=== PATIENT | female | born 1935 | race Caucasian/White ===

== ENCOUNTER 2018-12-17 18:28 | Observation (INO) | payer MEDICARE, MEDICAID ==
--- NOTE | 2018-12-17 18:42 | ED ---
Abdominal Pain/Female - HPI Summary HPI Summary: An 83 y/o female brought in by [facility] presents to [facility] with a chief complaint of RLQ pain since 21:00 yesterday. The patient had a CT done and there was concern for appendicitis. At triage the patient rated her pain as a 6/10 in severity. The patient is refusing pain medications. - History of Current Complaint Stated Complaint: APPENDICITIS PER EMS Time Seen by Provider: 12/17/18 18:34 Hx Obtained From: Patient Onset/Duration: Lasting Hours, Still Present Timing: Constant Severity Initially: Moderate Severity Currently: Moderate Pain Intensity: 6 Pain Scale Used: 0-10 Numeric Location: Discrete At: RLQ Radiates: No Character: Other: - unable to Aggravating Factor(s): Nothing Alleviating Factor(s): Nothing Associated Signs and Symptoms: Negative: Fever Allergies/Adverse Reactions: Allergies Allergy/AdvReac Type Severity Reaction Status Date / Time sulfamethoxazole Allergy Anaphylatic Verified 12/17/18 18:39 [From Bactrim] Shock trimethoprim [From Bactrim] Allergy Anaphylatic Verified 12/17/18 18:39 Shock TOPICAL VIT E Allergy Itching Uncoded 12/17/18 18:39 Home Medications: Home Medications Ascorbic Acid [Vitamin C] 1,000 mg PO DAILY 12/17/18 [History Confirmed 12/17/18 ] Candesartan Cilexetil 4 mg PO DAILY 12/17/18 [History Confirmed 12/17/18] Cholecalciferol TAB* [Vitamin D TAB*] 2,000 units PO DAILY 12/17/18 [History Confirmed 12/17/18] Fluticasone HFA 110 mcg(NF) [Flovent HFA 110 mcg(NF)] 1 puff INH BID 12/17/18 [ History Confirmed 12/17/18] Multivitamin [Multiple Vitamins] 1 tab PO DAILY 12/17/18 [History Confirmed 06/06] Pravastatin Sodium 20 mg PO DAILY 12/17/18 [History Confirmed 12/17/18] Sertraline HCl [Zoloft] 100 mg PO DAILY 12/17/18 [History Confirmed 12/17/18] PMH/Surg Hx/FS Hx/Imm Hx Cardiovascular History: Reports: Hx Hypercholesterolemia, Hx Hypertension Psychiatric History: Reports: Hx Depression - Family History Known Family History: Negative: Blood Disorder - Social History Alcohol Use: Weekly Hx Substance Use: No Smoking Status (MU): Never Smoked Tobacco Review of Systems Negative: Fever Positive: Abdominal Pain All Other Systems Reviewed And Are Negative: Yes Physical Exam - Summary Physical Exam Summary: Appearance: The patient is well-nourished in no acute distress and in no acute pain. Skin: The skin is warm and dry and skin color reflects adequate perfusion. HEENT: The head is normocephalic and atraumatic. The pupils are equal and reactive. The conjunctivae are clear and without drainage. Nares are patent and without drainage. Mouth reveals moist mucous membranes and the throat is without erythema and exudate. The external ears are intact. The ear canals are patent and without drainage. The tympanic membranes are intact. Neck: The neck is supple with full range of motion and non-tender. There are no carotid bruits. There is no neck vein distension. Respiratory: Chest is non-tender. Lungs are clear to auscultation and breath sounds are symmetrical and equal. Cardiovascular: Heart is regular rate and rhythm. There is no murmur or rub auscultated. There is no peripheral edema and pulses are symmetrical and equal. Abdomen: The abdomen is tender in her right lower quadrant. There are normal bowel sounds heard in all four quadrants and there is no organomegaly palpated. Musculoskeletal: There is no back tenderness noted. Extremities are non-tender with full range of motion. There is good capillary refill. There is no peripheral edema or calf tenderness elicited. Neurological: Patient is alert and oriented to person, place and time. The patient has symmetrical motor strength in all four extremities. Cranial nerves are grossly intact. Deep tendon reflexes are symmetrical and equal in all four extremities. Psychiatric: The patient has an appropriate affect and does not exhibit any anxiety or depression. Triage Information Reviewed: Yes Vital Signs Reviewed: Yes Abdominal Pain Fem Course/Dx - Course Course Of Treatment: Ms. Price was diagnosed with appendicitis at [facility] and transferred here for surgery. She was nontoxic in appearance with stable vital signs and was refusing pain medication. I spoke with Dr. Toledo who evaluated her in the emergency department and will take her to the OR. - Diagnoses Provider Diagnoses: Appendicitis - Provider Notifications Discussed Care Of Patient With: Zoë Toledo Time Discussed With Above Provider: 18:56 Instructed by Provider To: Admit As Inpatient Discharge - Sign-Out/Discharge Documenting (check all that apply): Patient Departure All imaging exams completed and their final reports reviewed: No Studies Patient Received Moderate/Deep Sedation with Procedure: No - Discharge Plan Condition: Stable Disposition: ADMITTED TO [facility] - Billing Disposition and Condition Condition: STABLE Disposition: Admitted to [facility] - Attestation Statements Document Initiated by Zekee: Yes Documenting Scribe: Edgar Anderson Provider For Whom Lia is Documenting (Include Credential): Raoul Hernandes MD Scribe Attestation: IEdgar, scribed for Raoul Hernandes MD on 12/17/18 at 2206. Scribe Documentation Reviewed: Yes Provider Attestation: The documentation as recorded by the Edgar mancia accurately reflects the service I personally performed and the decisions made by me, Raoul Hernandes MD Status of Scribe Document: Viewed
[2018-12-17] MEDS ORDERED: Bupivacaine 0.25% SDV PF* 10 ML VIAL INJ ONE (19:28)
[2018-12-17] MEDS ORDERED: Dexamethasone IV* 4 MG/ML 1 ML (4 MG) ONE ×2 (19:33→20:41)
[2018-12-17] MEDS ORDERED: Propofol* 10 MG/ML 20 ML BTL ONE ×2 (19:33→20:41)
[2018-12-17] MEDS ORDERED: Lidocaine 2% PF * 5 ML VIAL ONE ×2 (19:33→20:37)
[2018-12-17] MEDS ORDERED: Ondansetron INJ* 2 MG/ML VIAL ONE ×2 (19:33→20:41)
[2018-12-17] MEDS ORDERED: fentaNYL* 50 MCG/ML 2 ML VIAL (100 MCG VIAL) ONE ×3 (19:34→21:17)
[2018-12-17] MEDS ORDERED: Cisatracurium* 2 MG/ML MDV 5 ML ONE ×2 (19:34→20:41)
[2018-12-17] MEDS ORDERED: Midazolam* 1 MG/ML 5 ML VIAL (5 MG) ONE (19:34)
[2018-12-17] MEDS ORDERED: ceFAZolin 2 GM in NS PREMIX(*) 2 GM/100 ML BAG IVPB ONE (19:48)
[2018-12-17] MEDS ORDERED: Midazolam* 1 MG/ML 2 ML VIAL (2 MG) ONE (20:26)
[2018-12-17] MEDS ORDERED: Famotidine IV* 10 MG/ML 2 ML (20 mg) ONE (20:28)
--- NOTE | 2018-12-17 20:35 | HP ---
HISTORY AND PHYSICAL: DATE OF ADMISSION: 12/17/18 SERVICE: General Surgery. ATTENDING SURGEON: Dr. Zoë Toledo. REASON FOR ADMISSION: Right lower quadrant abdominal pain and acute appendicitis. HISTORY OF PRESENT ILLNESS: Ms. Price is a very pleasant 83-year-old female with a history of hypertension, hyperlipidemia and skin cancer, who presented to the [facility] with complaints of less than 1 day of right lower quadrant abdominal pain. She says that the pain began yesterday evening at approximately 9 p.m. The pain became progressively worse, so she came to the emergency room for evaluation. Per the patient and her medical records, she was evaluated and had a urinalysis showing some nitrites and trace leukocyte esterase, so she was given ceftriaxone for presumed UTI; however, a CT abdomen and pelvis was performed, which showed an acute appendicitis and a dilated appendix. She was therefore transferred to [facility] Emergency Room for a surgical consultation. Currently, the patient says that her only complaint is mild pain. She does not have any significant nausea or vomiting; however, she did vomit once in the emergency room and she last ate at approximately 10:30 this morning. PAST MEDICAL HISTORY: Hypertension, hyperlipidemia, and asthma. PAST SURGICAL HISTORY: Removal of skin cancers on her face, left orbital surgery. MEDICATIONS: 1. Candesartan 4 mg p.o. daily. 2. Sertraline 100 mg p.o. daily. 3. Pravastatin 20 mg p.o. daily. 4. Omeprazole 20 mg p.o. daily. 5. Ranitidine 150 mg p.o. q.h.s. 6. Albuterol as needed. 7. Fluticasone as needed. 8. [place]-3 fatty acids 1 cap p.o. daily. 9. Multivitamins. 10. Calcium 1600 mg p.o. daily. ALLERGIES: BACTRIM and VITAMIN E. FAMILY HISTORY: No significant family history. SOCIAL HISTORY: The patient is a nonsmoker. She lives in an assisted living facility. She is independent of her daily activities. She has family that lives close by and whom she sees often. REVIEW OF SYSTEMS: Negative except for abdominal pain and emesis. PHYSICAL EXAMINATION GENERAL: This is an elderly woman, appears younger than her stated age, who is lying comfortably in the stretcher, in no apparent distress. VITAL SIGNS: Temperature is 99.4, pulse is 95, respiratory rate is 20, O2 sat is 99% on room air, blood pressure is 155/77. HEENT: Normocephalic, atraumatic. There is some slight proptosis of her eye. RESPIRATORY: Clear to auscultation bilaterally. CARDIOVASCULAR: Regular rate and rhythm. ABDOMEN: Soft, nondistended. Focal tenderness in the right lower quadrant. EXTREMITIES: No edema. DIAGNOSTIC STUDIES/LAB DATA: Her labs from her [facility] report sodium is 139, potassium is 3.8, chloride is 102, CO2 is 26, BUN is 11, creatinine is 0.8, glucose is 107. Total bilirubin is 0.8, calcium is 9.1, AST is 19, ALT is 17, alkaline phosphatase is 61. White blood cell count is 12.2, hemoglobin is 12.6, hematocrit is 38.9, and platelets are 187. Urinalysis shows positive nitrites and trace leukocyte esterase. Radiology: CT abdomen and pelvis - images reviewed. Report notes that a dilated appendix that is obstructed by a fecalith, acute appendicitis without rupture. There is liver lesion that is almost definitely a benign cyst, unless there is a known history of extrahepatic malignancy that can spread to the liver. The patient also has extensive diverticulosis without diverticulitis. ASSESSMENT AND PLAN: Ms. Price is a very pleasant 83-year-old female with a history of hypertension, hyperlipidemia and asthma, who presents to the emergency room with complaints of less than 1 day of right lower quadrant abdominal pain. She was found to have a slightly elevated white blood cell count of 12 and findings consistent with acute appendicitis on CT scan. She was therefore transferred from the [facility] to [facility] for a surgical consultation. I discussed with her and her daughter that the options for management of acute appendicitis are operative intervention with a laparoscopic appendectomy or antibiotics alone. I discussed the risks, benefits, and alternatives of surgery and they wish to proceed with surgery. I discussed that the risks include, but are not limited to bleeding, infection including intraabdominal infection such as an abscess, and possibility of injury to nearby structures such as the intestines, colon, bladder, and so forth. There are also risks of perioperative morbidity. The patient understands all these things and she wishes to proceed with surgery. She has been n.p.o. We will give her antibiotics prior to surgery. She should continue IV fluids and she may be admitted overnight for observation. [id number]/[facility] #: [id number] JULI
[2018-12-17] MEDS ORDERED: Succinylcholine* 20 MG/ML 10 ML VIAL ONE (20:43)
[2018-12-17] MEDS ORDERED: Naloxone* 0.4 MG/ML 1 ML VIAL IV PRN ×2 (21:12→21:13)
[2018-12-17] MEDS ORDERED: PROCHLORPERAZINE INJ 5 MG/ML 2 ML VIAL IV PRN (21:13)
[2018-12-17] MEDS ORDERED: Ondansetron INJ* 2 MG/ML VIAL IV PRN ×2 (21:13→22:12)
[2018-12-17] MEDS ORDERED: oxyCODONE TAB* 5 MG TAB PO PRN (21:13)
[2018-12-17] MEDS ORDERED: fentaNYL* 50 MCG/ML 2 ML VIAL (100 MCG VIAL) IV PRN (21:13)
[2018-12-17] MEDS ORDERED: DiMENhydriNATE IV* 50 MG/ML VIAL IV PUSH PRN (21:13)
[2018-12-17] MEDS ORDERED: Levalbuterol 0.63MG/3ML NEB* UNIT OF USE INH PRN (21:13)
[2018-12-17] MEDS ORDERED: diPHENhydraMINE IV* 50 MG/ML 1 ml VIAL (BENADRYL) IV PRN (21:13)
[2018-12-17] MEDS ORDERED: Acetaminophen IV 1GM/100ML * 100 ML ONE (21:36)
[2018-12-17] MEDS ORDERED: Labetalol IV* 5 MG/ML 20 ML VIAL ONE (21:41)
[2018-12-17] MEDS ORDERED: HYDROmorphone INJ1* 1 MG/ML SYRINGE IV SLOW PU PRN (22:12)
[2018-12-17] MEDS ORDERED: oxyCODONE/Acetamin 5/325 MG* TAB PO PRN (22:12)
[2018-12-17] MEDS ORDERED: NS 0.9% 1000 ML** 1,000 ML IV SCH (22:15)
--- NOTE | 2018-12-17 22:20 | OP ---
Operative Report - Detailed - Operation Details Date of Operation: 12/17/18 Surgeon(s): Zoë Toledo Court Officer(s): None Anesthesiologist(s): Dr. King Anesthesia: GETA Pre-Op Diagnosis: acute appendicitis Post-Op Diagnosis: acute perforated appendicitis Planned Operative Procedure(s): laparoscopic appendectomy Estimated Blood Loss: minimal, less than 10cc Specimen(s)/Culture(s) Description: appendix Drains: None Wound Classification: Contaminated Complications: None Findings: Retrocecal appendix, dilated and hyperemic. Perforated at the tip with local spillage
--- NOTE | 2018-12-17 23:14 | OP ---
DATE OF OPERATION: 12/17/18 - ROOM #338 DATE OF : 33 SERVICE: General Surgery. SURGEON: Zoë Toledo MD ELECTRONIC SECURITY TECHNICIAN: None. ANESTHESIOLOGIST: Maria Alejandra King MD ANESTHESIA: General endotracheal anesthesia. PRE-OP DIAGNOSIS: Acute appendicitis. POST-OP DIAGNOSIS: Perforated acute appendicitis. OPERATIVE PROCEDURE: Laparoscopic appendectomy. SPECIMEN: Appendix. ESTIMATED BLOOD LOSS: Minimal, less than 10 cc. INDICATIONS FOR SURGERY: Ms. Price is a very pleasant 83-year-old female who presented to the emergency room with complaints of one day of right lower quadrant abdominal pain. She was found to have white blood cell count of [address] scan concerning for acute appendicitis. Therefore, she gave informed consent for laparoscopic appendectomy. She understood the risks, benefits, and alternatives of the procedure and wished to proceed. INTRAOPERATIVE FINDINGS: Dilated hyperemic and perforated appendix that was locally perforated at the tip DESCRIPTION OF PROCEDURE: The patient was brought back to the operating room and placed on the operating table in the supine position. Sequential compression devices were placed in the bilateral lower extremities for DVT prophylaxis. Antibiotics with Ancef was administered prior to incision. General endotracheal anesthesia was induced. The patient's abdomen was prepped and draped in normal sterile fashion. Prior to beginning the procedure, a time- out was performed verifying the patient's name, MRN, and the procedure to be performed. The patient did urinate just prior to coming to the operating room. The patient had a small umbilical hernia, therefore, local anesthesia consisting of 0.25% Marcaine was infiltrated into the umbilicus. The umbilicus was elevated and the skin was divided down to the subcutaneous tissue using 11 blade knife. The fascia where there was a small umbilical hernia was located widened large enough for a Cara trocar to be placed and the fascia was then reapproximated loosely using [id number] 0-Vicryl suture to facilitate later closure. Next, a Cara trocar was then placed into the abdomen and the abdomen was insufflated to 15 mmHg. Upon general inspection of the abdominal cavity with laparoscope, there was no apparent injury that had made upon entry. Next, under direct visualization, the remaining 2 trocars were placed. A 5- mm trocar was placed in the left lower quadrant after administering local anesthesia and another additional trocar was placed in the lower midline. The right lower quadrant was examined. The patient was noted to have a partially retroperitoneal appendix that was very dilated and hyperemic and the tip was noted to be already perforated upon entry into the abdominal cavity. There was some feculent stool that drained from the small perforation, but this was limited to the right lower quadrant and there did not appear to be any free feculent drainage throughout the abdomen. Therefore, this fluid was aspirated and then a window was made through the meso-appendix at the base of the appendix , which appeared to be very viable and non-hyperemic. After this window was made through the mesoappendix, a 45-mm EndoGIA farris load stapler was used to staple across the base of the appendix. After this was done, the appendix was elevated and the mesentery was divided using a LigaSure. This was very difficult given how friable the mesentery was from all the surrounding inflammation. However, once this was done, the appendix was placed into an EndoCatch bag and removed from the abdomen as a specimen. Next, the staple line was examined. It was noted to be hemostatic and intact. There was a small amount of punctate bleeding at the mesentery and this was cauterized. The right lower quadrant was locally irrigated with saline and inspection of the pelvis showed that there was very little fluid in the pelvis, which was suctioned. Therefore, the Cara trocar was removed under direct visualization at the umbilicus and the previously placed 0-Vicryl suture was then used to close the umbilical fascia. This closure was visualized to ensure nothing that was caught while this closure occurred. An additional 0-Vicryl interrupted suture was placed also at the fascia. Next, under direct visualization, the remaining trocars were removed and desufflation was obtained and the skin was then closed using interrupted 4-0 Monocryl sutures. Sterile dressing was then placed. The patient's anesthesia was reversed and she was taken to the PACU in stable condition. At the end of the case, all counts were correct and I was present during the entirety of the case. [id number]/[facility] #: [id number] [facility]ALTH CENTER[facility]argo
[2018-12-17] MEDS ORDERED: ZOSYN 3.375 GM x ONE DOSE over 30 miuntes IVPB ×2 (23:30)
[2018-12-18] MEDS: Piperacillin/Tazobactam VIAL*) 3.375 GM in NS 0.9% 100 ML* 100 ML IVPB SCH ×5 (03:50→21:15)
[2018-12-18 06:44] LABS: ABS Lymphocytes 0.8 10^3/ul (1.0-4.8); ABS Monocytes 0.9 10^3/ul (0-0.8); ABS Neutrophils 13.5 10^3/ul (1.5-7.7); Hematocrit 36 % (35-47); Lymphocyte % 5.2 %; Mean Corpuscular HGB Conc 33 g/dL (31-36); Mean Corpuscular Hemoglobin 29 pg (27-31); Mean Corpuscular Volume 87 fL (80-97); Mean Platelet Volume 10.3 fL (7.4-10.4); Platelet Count 143 10^3/uL (150-450); Red Blood Count 4.17 10^6 /uL (3.70-4.87); Red Cell Distribution Width 14 % (10-15); White Blood Count 15.2 10^3/uL (3.5-10.8)
--- NOTE | 2018-12-18 08:50 | PN ---
<Guillermina Biswas - Last Filed: 12/18/18 10:10> Progress Note - Progress Note Date of Service: 12/18/18 Note: Patient seen with GALDINO Thompson. This is a 83 y/o female s/p laparoscopic appendectomy yesterday evening 17DEC2018, contained perforation. Patient stayed overnight for abx and due to late case. Patient is doing well. Some abdominal tenderness. Pt on clear liquids but states that she could eat, she's hungry. No nausea or vomiting, chest pain, shortness of breath, fever, chills. Active medication is as follows: Acetaminophen (Tylenol Tab*) 650 mg PO Q4H PRN PRN Reason: Pain Or Temperature >101 F Last Admin: 12/18/18 09:55 Dose: 650 mg Heparin Sodium (Porcine) (Heparin Vial(*)) 5,000 units SUBCUT Q12HR [facility] Last Admin: 12/18/18 09:47 Dose: 5,000 units Hydromorphone HCl (Dilaudid Inj1s*) 0.5 mg IV SLOW PU Q1H PRN PRN Reason: PAIN - SEVERE Sodium Chloride (Ns 0.9% 1000 Ml) 1,000 mls @ 75 mls/hr IV PER RATE [facility] Last Admin: 12/17/18 23:34 Dose: 75 mls/hr Piperacillin Sod/Tazobactam (Sod 3.375 gm/ Sodium Chloride) 100 mls @ 25 mls/ hr IVPB 0400,1200,2000 [facility] Last Admin: 12/18/18 03:50 Dose: 25 mls/hr Ondansetron HCl (Zofran Inj*) 4 mg IV Q4H PRN PRN Reason: NAUSEA/VOMITING Oxycodone/Acetaminophen (Percocet 5/325 Tab*) 1 tab PO Q4H PRN PRN Reason: PAIN Sertraline HCl (Zoloft*) 100 mg PO DAILY [facility] Last Admin: 12/18/18 09:46 Dose: 100 mg Valsartan (Diovan Tab*) 20 mg PO DAILY [facility] Last Admin: 12/18/18 09:47 Dose: 20 mg O: Vital Signs Temp 98.4 F 12/18/18 07:43 Pulse 65 12/18/18 07:43 Resp 20 12/18/18 10:02 BP 118/51 12/18/18 07:43 Pulse Ox 100 12/18/18 07:43 Intake & Output 12/17/18 12/18/18 12/18/18 18:59 06:59 18:59 Intake Total 1600 Output Total 0 200 Balance 1600 -200 Weight 144 lb 144 lb Intake: IV Fluids 1300 LR 1250 NS 50ML, Cefazolin 2G 50 Oral 300 Output: Urine 0 200 Other: Estimated Void Medium # Bowel Movements 1 Estimated Stool Amount Medium # Voids 1 General: patient is lying comfortably in bed, in no acute distress. A&O x 3. Cardio: regular rate and rhythm. No peripheral edema. Respiratory: Lungs clear to auscultation throughout. No wheezes or rhonchi. Abdomen/surgical site: surgical sites remain closed and without erythema or purulent drainage. Some ecchymosis around umbilicus. Some diffuse tenderness to palpation throughout abdomen. Bowel sounds hypoactive throughout all 4 quadrants. A: POD #1 s/p laparoscopic appendectomy, contained perforation. Improving. P: Speak with Dr. Toledo and transition from clear liquids to food as tolerated Transition to oral antibiotics regular ambulation and use of incentive spirometry patient is ready for discharge today <Bryce Terrazas - Last Filed: 12/18/18 17:12> Progress Note - Progress Note Note: Patient seen with PA student as noted above. Subsequently seen by Dr. Toledo. She would like patient to receive add'l IV abx. Will therefore defer discharge to tomorrow, then home on add'l po Augmentin x 7 d.
[2018-12-18] MEDS: Sertraline* 100 MG TAB PO SCH (09:46)
[2018-12-18] MEDS: Heparin VIAL(*) 5000 UNITS/ML VIAL (FIVE THOUSAND) SUBCUT SCH ×2 (09:47→21:18)
[2018-12-18] MEDS: Valsartan TAB* 40 MG PO SCH (09:47)
[2018-12-18] MEDS: Acetaminophen TAB* 325 MG PO PRN ×3 (09:55→21:14)
--- NOTE | 2018-12-18 11:23 | PN ---
Progress Note - Progress Note Date of Service: 12/18/18 Note: Surgery Progress Note S: Patient feels well but does have some abdominal pain. She tolerated clears. Has been walking to the bathroom. O: Vital Signs: Temp Pulse Resp BP Pulse Ox 98.4 F 65 20 118/51 100 12/18/18 07:43 12/18/18 07:43 12/18/18 10:02 12/18/18 07:43 12/18/18 07:43 Laboratory Results - last 24 hr 12/18/18 06:34 WBC 15.2 H RBC 4.17 Hgb 12.0 Hct 36 MCV 87 MCH 29 MCHC 33 RDW 14 Plt Count 143 L MPV 10.3 Neut % (Auto) 89.0 Lymph % (Auto) 5.2 Garza % (Auto) 5.6 Eos % (Auto) 0.0 Baso % (Auto) 0.2 Absolute Neuts (auto) 13.5 H Absolute Lymphs (auto) 0.8 L Absolute Monos (auto) 0.9 H Absolute Eos (auto) 0.0 Absolute Basos (auto) 0.0 Absolute Nucleated RBC 0.0 Nucleated RBC % 0.0 Intake & Output 12/17/18 12/18/18 12/18/18 22:59 06:59 14:59 Intake Total 1200 400 Output Total 0 200 Balance 1200 400 -200 Weight 144 lb 144 lb Intake: IV Fluids 1200 100 LR 1150 100 NS 50ML, Cefazolin 2G 50 Oral 300 Output: Urine 0 200 Other: Estimated Void Medium # Bowel Movements 1 Estimated Stool Amount Medium # Voids 1 Physical exam: ABD- soft, mild tenderness in right abdomen, incisions c/d/i A/P: 83 F POD 1 from laparoscopic appendectomy for perforated appendicitis, doing well. - Advance diet to regular - Continue IV abx with zosyn for another 24 hours. If patient remains afebrile can be discharged home tomorrow on Augmentin for 7 days and will follow up with me in the office in 10-14 days. - HLIV - Continue OOB and ambulating
[2018-12-19] MEDS: Piperacillin/Tazobactam VIAL*) 3.375 GM in NS 0.9% 100 ML* 100 ML IVPB SCH ×2 (04:07→10:32)
[2018-12-19] MEDS: Acetaminophen TAB* 325 MG PO PRN (04:13)
[2018-12-19 05:45] LABS: Hematocrit 30 % (35-47); Hemoglobin 10.3 g/dL (12.0-16.0); Mean Corpuscular HGB Conc 34 g/dL (31-36); Mean Corpuscular Hemoglobin 30 pg (27-31); Mean Corpuscular Volume 87 fL (80-97); Mean Platelet Volume 10.6 fL (7.4-10.4); Platelet Count 140 10^3/uL (150-450); Red Blood Count 3.47 10^6 /uL (3.70-4.87); Red Cell Distribution Width 14 % (10-15); White Blood Count 8.3 10^3/uL (3.5-10.8)
[2018-12-19 06:26] LABS: ABS Monocytes 0.5 10^3/ul (0-0.8); ABS Neutrophils 6.8 10^3/ul (1.5-7.7); Eosinophil % 0.5 %; Lymphocyte % 11.7 %
[2018-12-19 07:31] VITALS: BP 119/54
--- NOTE | 2018-12-19 08:31 | PN ---
Progress Note - Progress Note Date of Service: 12/19/18 Note: no complaints, abdomen benign, dc to home per Dr Tre schafer
[2018-12-19] MEDS: Heparin VIAL(*) 5000 UNITS/ML VIAL (FIVE THOUSAND) SUBCUT SCH (09:00)
[2018-12-19] MEDS: Valsartan TAB* 40 MG PO SCH (09:00)
[2018-12-19] MEDS: Sertraline* 100 MG TAB PO SCH (09:00)
--- NOTE | 2019-01-14 21:17 | DS ---
CC: Dr. Herberth Malcolm * DISCHARGE SUMMARY: DATE OF ADMISSION: 12/17/18 DATE OF DISCHARGE: 12/19/18 SERVICE: General Surgery. ATTENDING SURGEON: Dr. Zoë Toledo. ADMISSION DIAGNOSIS: Acute appendicitis. DISCHARGE DIAGNOSIS: Acute perforated appendicitis. OPERATION: Laparoscopic appendectomy. HOSPITAL COURSE: Ms. Price is a very pleasant 83-year-old female who presented to the emergency room with complaints of right lower quadrant abdominal pain. She was found on imaging to have findings consistent with acute appendicitis. She was, therefore, taken to the operating room for a laparoscopic appendectomy. Operative findings were significant for acute perforated appendicitis. Otherwise, the surgery was uneventful. Postoperatively, the patient did very well. She was able to be discharged on postoperative day #2. On the day of discharge, on postoperative day #2, the patient was doing well. Per Dr. Saleh's note, who was covering the surgical service on that date, she was not having any abdominal pain and had no complaints. Her vital signs on the day of discharge were temperature of 99.4, pulse of 63, respiratory rate of 16, O2 sat of 96% O2 on room air, and the blood pressure was 119/54. Per Dr. Saleh's note, her abdomen was benign. DISCHARGE INSTRUCTIONS: The patient was given a preprinted handout with discharge instructions and return precautions. She was told that she could shower. Discharge medications were Augmentin 875 mg p.o. b.i.d. for 7 days. The patient was told to follow up with Dr. Toledo as an outpatient and to call with any fever, chills, nausea, or vomiting. DISPOSITION: To home. CONDITION: Good. [id number]/[facility] #: [id number] [facility]
== END 2018-12-19 10:30 | disposition home or self-care (01) | DRG 340 ==
LOC: ED 18:28 → OR 19:45 → SSU 22:12 → INTOOBSV 22:12
PROVIDERS: ADMIT Surgery; ATTEND Surgery
DX: K35.32 Acute appendicitis with perforation, localized peritonitis, and gangrene, without abscess (principal); E78.00 Pure hypercholesterolemia, unspecified; I10 Essential (primary) hypertension; E78.5 Hyperlipidemia, unspecified; J45.909 Unspecified asthma, uncomplicated; K57.90 Diverticulosis of intestine, part unspecified, without perforation or abscess without bleeding; K21.9 Gastro-esophageal reflux disease without esophagitis; F32.9 Major depressive disorder, single episode, unspecified; Z88.1 Allergy status to other antibiotic agents; Z88.8 Allergy status to other drugs, medicaments and biological substances; Z72.89 Other problems related to lifestyle; Z85.828 Personal history of other malignant neoplasm of skin
CPT/HCPCS: 36415; 85025; 88304; 99282; A9270-GY; C1776; G0378; J0330; J0690; J1100; J1644; J2250; J2405; J2543; J2704; J3010; J3490